=== PATIENT | male | born 1985 | race Two or more races ===

== ENCOUNTER 2016-10-10 12:03 | Emergency (ER) | payer OTHER ==
[~2016-10-10] VITALS: Ht 167.6 cm; Wt 88.0 kg
--- NOTE | 2016-10-10 12:20 | NUR ---
PT CAME IN FOR DIFFUSED ABDOMINAL PAIN WITH N/V SINCE YESTERDAY. PER PT HE RECENTLY TRAVELLED FROM [place] LAST WEEK. DENIES FEVER AND DIARRHEA. SEEN BY MD FOR EVAL. SAFETY AND COMFORT MEASURES PROVIDED. WILL MONITOR.
--- NOTE | 2016-10-10 12:29 | NUR ---
IV ACCESS STARTED. BLOOD DRAWN FOR LABS.
[2016-10-10 12:30] LABS: BASOPHILS % (AUTO) 0.2 % (0.0-2.0); EOSINOPHILS # (AUTO) 0.1 /CMM (0.0-0.7); EOSINOPHILS % (AUTO) 1.2 % (0.0-6.0); HEMATOCRIT 48 % (39-51); LYMPHOCYTES # (AUTO) 1.6 /CMM (0.8-4.8); LYMPHOCYTES % (AUTO) 17.1 % (20.0-44.0); MEAN CORPUSCULAR HEMOGLOBIN 28 PG (26.0-33.0); MEAN CORPUSCULAR HGB CONC 33 g/dl (31.0-36.0); MEAN CORPUSCULAR VOLUME 85 fL (80-96); MONOCYTES # (AUTO) 0.6 /CMM (0.1-1.30); MONOCYTES % (AUTO) 6.2 % (2.0-12.0); NEUTROPHILS # (AUTO) 7.1 /CMM (1.8-8.9); NEUTROPHILS % (AUTO) 75.3 % (43.0-81.0); PLATELET COUNT (AUTO) 296 /CMM (150-450); RDW COEFFICIENT OF VARIATION 12.4 (11.5-15.0); RED BLOOD CELL COUNT(AUTO) 5.68 MIL/uL (4.5-6.0); WHITE BLOOD COUNT (AUTO) 9.4 K/uL (4.3-11.0)
[2016-10-10 12:40] LABS: CALCIUM, SERUM 9.5 mg/dL (8.5-10.1); CREATININE 0.8 mg/dL (0.6-1.3); POTASSIUM 4.8 mmol/L (3.5-5.1)
[2016-10-10 12:43] LABS: APPEARANCE,URINE Clear (CLEAR); BILIRUBIN,URINE Negative (NEGATIVE); BLOOD, URINE Negative Ery/uL (NEGATIVE); COLOR,URINE Yellow (YELLOW); KETONES,URINE Negative (NEGATIVE); LEUKOCYTE ESTERASE ,URINE Negative (NEGATIVE); NITRITE, URINE Negative (NEGATIVE); PH,URINE 8.5 (5.0-8.0); PROTEIN,URINE Negative (NEGATIVE); UGLUCOSE Negative (NEGATIVE); UROBILINOGEN,URINE 0.2 EU/dL (0.2)
[2016-10-10 12:46] LABS: BILIRUBIN,DIRECT 0.1 mg/dL (0.0-0.2); BILIRUBIN,TOTAL 0.4 mg/dL (0.2-1.0); TOTAL PROTEIN, SERUM 7.9 g/dL (6.4-8.2)
[2016-10-10] MEDS ORDERED: IV NS 0.9% 1,000 ML ONE (12:58)
[2016-10-10] MEDS ORDERED: ONDANSETRON HCL/PF 4 MG/2 ML VIAL ONE (12:58)
[2016-10-10] MEDS ORDERED: IV NS 0.9% 1,000 ML BAG IV ONE (13:00)
[2016-10-10] MEDS ORDERED: ONDANSETRON HCL/PF - ER 4 MG/2 ML VIAL IV ONE (13:00)
--- NOTE | 2016-10-10 13:50 | NUR ---
IV removed. Catheter intact and site benign. Pressure and 4x4 applied to site. No bleeding noted.
--- NOTE | 2016-10-10 14:05 | NUR ---
Patient discharged to home in stable condition. Written and verbal after care instructions given. Patient verbalizes understanding of instruction. Pt ambulatory with a steady gait.
[2016-10-10 14:20] VITALS: BP 125/77
== END 2016-10-10 14:21 | disposition home or self-care (01) ==
LOC: ER 12:29
DX: R11.2 Nausea with vomiting, unspecified (principal)
CPT/HCPCS: 36415; 80048-TC; 80076-TC; 81000-TC; 83690-TC; 85025-TC; A4606; J2405; J7030; Z7610